=== PATIENT | female | born 1950 | race Caucasian/White ===

== ENCOUNTER → 2017-03-06 | Day surgery (SDC) | payer OTHER ==
[~2017-03-06] VITALS: Ht 167.6 cm; Wt 107.5 kg
[~2017-03-06] MED LIST: 0.9% Sodium Chloride 1,000 ML IV PRN; ASPI81TA19 PO; ATOR20TA PO; CALC60CR3 TOP; CHOL500051 PO; CLOB15CR3 TOP; FUR20 PO; GABA-502 PO; GLBR5T PO; LISI10TA2 PO; LOSA25TA21 PO; Lactated Ringer's 1,000 ML IV SCH; METF500T4 PO; MULT-1018 PO; MetoCLOpramide 5 mg/mL 2 mL Inj IVPUSH PRN; NPR500T PO; OXYB5TAB PO; Ondansetron 2 mg/mL 2 mL Inj IVPUSH PRN; SERT20OR PO; Sodium Chloride LOK Flush 10 mL Syringe IV PRN; fentaNYL-PF 50 mCg/mL 2 mL Inj IVPUSH PRN
[2017-03-06 12:46] VITALS: BP 130/72; PULSE 65; RESP 16; O2SAT 94
[2017-03-06 14:09] VITALS: BP 116/64; PULSE 63; RESP 16; O2SAT 94
[2017-03-06 14:15] VITALS: BP 128/75; PULSE 64; RESP 16; O2SAT 93
--- NOTE | 2017-03-06 14:23 | ENDO ---
[address] [address] ENDOSCOPY PROCEDURE PATIENT: KATLYN ALFONSO : 1950 MR#: [id number] ADMIT: 03/06/2017 JOB ID: [id number] DATE: 03/06/2017 TYPE OF OPERATION: Esophagogastroduodenoscopy with biopsy. PREOPERATIVE DIAGNOSIS(ES): Gastroesophageal reflux disease and hematemesis. POSTOP DIAGNOSIS: Normal upper endoscopy status post biopsy. ANESTHESIA: 1. Fentanyl 100 mcg. 2. Versed 5 mg IV administered. COMPLICATIONS: None. BLOOD LOSS: Minimal. DESCRIPTION OF PROCEDURE: After risks and benefits were explained to the patient, informed consent was obtained. After anesthesia administered, an upper endoscope was then inserted into mouth and intubating to the esophagus, stomach, into the second portion of duodenum. Mucosa carefully examined. After procedure was done, the scope was withdrawn and the procedure terminated. FINDINGS: Upon inspection of the esophagus, the esophagus appeared normal without masses, ulcers or lesions. Z-line located at 40 cm from incisors. Upon entering stomach, the stomach also appeared normal without masses, ulcers or lesions. Retroflexion was normal. Duodenal bulb, first and second portion normal. Biopsies taken from antrum, body and distal esophagus. IMPRESSIONS: Normal upper endoscopy status post biopsy. RECOMMENDATION: 1. Await pathology results. 2. Followup at [facility] as needed.
--- NOTE | 2017-03-09 12:08 | PATH ---
SURGICAL PATHOLOGY Attending Physician:Dillon Lopez MD CASE STATUS: Signed Out PATIENT NAME: KATLYN ALFONSO PID: [id number] : 1950 DATE COLLECTED:03/06/2017 00:00 SPECIMEN: 1: Stomach, Antrum, Biopsy 2: Gastric, Biopsy 3: Esophagus, Biopsy CLINICAL HISTORY: 1). ANTRUM 2). GASTRIC BODY 3). DISTAL ESOPHAGUS FINAL DIAGNOSIS: 1. Stomach, Antrum, Biopsy: Antral mucosa with mild chronic gastritis. Negative for Helicobacter by immunohistochemistry. Negative for intestinal metaplasia. Negative for dysplasia and malignancy. 2. Stomach, Body, Biopsy: Body-type mucosa with no diagnostic abnormality. Negative for Helicobacter by immunohistochemistry. Negative for intestinal metaplasia. Negative for dysplasia and malignancy. 3. Distal Esophagus, Biopsy: Squamocolumnar junctional mucosa with mild chronic inflammation. Negative for intestinal metaplasia. Negative for dysplasia and malignancy. ICD10: R10.9 GROSS DESCRIPTION: The specimen is received in three formalin filled containers labeled with the patient's name. 1). The specimen is labeled "antrum" and consists of 2 portions of tissue which aggregate to 0.3 x 0.2 x 0.2 CM. The specimen is entirely submitted in cassettes 1A. 2). The specimen is labeled "gastric body" and consists of 2 portions of tissue which aggregate to 0.3 x 0.3 x 0.2 CM. The specimen is entirely submitted in cassette 2A. 3). The specimen is labeled "distal esophagus" and consists of 2 portions of tissue which aggregate to 0.3 x 0.3 x 0.2 CM. The specimen is entirely submitted in cassette 3A. 03/07/2017DC MICRO DESCRIPTION: Immunohistochemical stains were performed on blocks 1 and 2 to evaluate for Helicobacter organisms and are both negative. A control stain showed appropriate reactivity. * This test was developed and its performance characteristics determined by [facility]. It has not been cleared or approved by the U.[place]. Food and Drug Administration. The FDA has determined that such clearance or approval is not necessary. This test is used for clinical purposes. It should not be regarded as investigational or for research. ICD-9 CODES: CPT CODES: 1: 19777, 69210 2: 67903, 17174 3: 18208 Electronically Signed Out Ginger Roberson MD [facility] [address], [place] [address] Technical component performed at [facility], [address], [place], [address]
== END | disposition home or self-care (01) ==
LOC: END 00:19
PROVIDERS: ATTEND Internal Medicine Gastroenterology
DX: K92.0 Hematemesis (principal); K21.9 Gastro-esophageal reflux disease without esophagitis; K29.50 Unspecified chronic gastritis without bleeding; E78.2 Mixed hyperlipidemia; I10 Essential (primary) hypertension; E11.9 Type 2 diabetes mellitus without complications; Z86.010 Personal history of colon polyps; Z79.82 Long term (current) use of aspirin; Z79.84 Long term (current) use of oral hypoglycemic drugs
CPT/HCPCS: 43239; J2250; J3010; J7030